=== PATIENT | male | born 1960 | race Caucasian/White ===

== ENCOUNTER 2016-03-16 07:25 | Emergency (ER) | payer MEDICARE ==
[2016-03-16 07:44] VITALS: BMI 42.0
[2016-03-16] MEDS ORDERED: KETOROLAC TROMETH 30 MG/ML VIAL IM ONE (07:56)
--- NOTE | 2016-03-16 08:06 | EDPRACDOC ---
- General Chief Complaint: Fall Stated Complaint: FALL / LEFT ARM PAIN Time Seen by Provider: 03/16/16 07:45 Information Source: Patient - History of Present Illness Onset: 02/17/16 HPI: PT FELL ON 02/16 ON THE ICE. HE LANDED ON HIS LEFT ARM AND HAS CONTINUED PAIN IN IT. PT SAID THAT HE TALKED TO HIS DR ABOUT IT, BUT NOTHING WAS DONE. THE PT SAID THAT IT CONTINUES TO HURT. Pain Severity: Reports: Moderate Injuries/Pain Location: Reports: upper extremity Reason for Fall: Reports: slipped Loss of Consciousness: no loss of consciousness Associated Symptoms (Fall): Reports: denies symptoms Allergies/Adverse Reactions: Allergies hornet venom Allergy (Verified 03/16/16 07:44) Unknown prednisone Allergy (Verified 03/16/16 07:44) Unknown/See Comments FEELS CRAZY venom-wasp [wasp venom] Allergy (Verified 03/16/16 07:44) Anaphylaxis* YELLOW JACKET Allergy (Uncoded 03/16/16 07:44) Unknown Home Medications: Ambulatory Orders Albuterol Sulfate [Ventolin] 2.5 mg NEB Q4H PRN 01/22/13 Saxagliptin HCl/Metformin HCl [Kombiglyze Xr 2.5-1,000 mg Tab] 1 tab PO BID(BARON ) 01/22/13 Gabapentin [Neurontin] 300 mg PO BID 04/18/14 HydrOXYzine HCl (Antihistamine [Atarax] 25 mg PO Q6H PRN 04/18/14 Nebulizer [Erapid Nebulizer] 1 each UNK 04/18/14 Pravastatin [Pravachol] 40 mg PO HS 04/18/14 Fenofibrate [Tricor] 145 mg PO DAILY 06/30/15 Humalog Mix 75/25 40 unit SQ BID 12/02/15 Lisinopril [Zestril] 2.5 mg PO DAILY 12/02/15 Oxycodone HCl [Roxicodone] 5 mg PO Q6H #20 tablet 03/16/16 ED Past Medical History - Patient Medical History Cardiac History: Reports: Hypertension, Hypercholesterolemia Respiratory History: Reports: Asthma, COPD, Chronic BronchitisComment Only: Pneumonia (UNSURE) GI/ History: Reports: Ulcer Musculoskeletal History: Reports: Arthritis Psychological History: Denies: Depression Systemic History: Reports: Diabetes. Denies: Cancer Surgical History: Reports: Hernia Surgery (DR KIMBROUGH) - Family Medical History Reports: Diabetes (mother), Cancer (father colon ca). Denies: Hypertension, Stroke, Cardiac Disorders - Social Medical History Smoking Status: Former smoker ETOH: None Substance Abuse: None Lives In: Home EDM Review of Systems - Review of Systems ROS Negative Except as Marked: Yes All systems reviewed and were negative except as marked Musculoskeletal: Hand, Shoulder, Wrist - Physical Exam Constitutional: Alert (Awake), No apparent distress Oriented to: Time, Person, Place Last recorded Vital Signs: Last Vital Signs Temp 97.8 F 03/16/16 07:36 Pulse 90 03/16/16 08:00 Resp 18 03/16/16 08:00 BP 122/71 03/16/16 08:00 Pulse Ox 95 03/16/16 08:00 Oxygen Pulse Oxygen Saturation 95 O2 Device Room Air Oxygen Flow Rate Fraction of Inspired Oxygen ( FIO2) - HEENT Head: Normal ( normocephalic) Eye Exam: Normal (PERRL, EOMI, Sclera white) Oropharynx: Normal (Pharynx:Moist without exudate,Gums-no swelling) ENT EAC: Normal TMJ: Normal Nose: No Symptoms Reported (septum midline) Neck: Normal (FROM, trachea at midline) - Respiratory/Cardiovascular Respiratory: Normal - CTA (BBS clear to auscultation without adventitious sounds ) Cardiovascular: Normal (RRR without murmur, gallop or rub) - GI Auscultation: Normal (NABS) Palpation: Normal (Soft,No rebound or guarding, non distended) Tenderness: Non tender Nunez's Sign: Negative - Musculoskeletal Back: Normal Extremities: Normal - Integumentary Skin: Other (PSORIASIS) Lymphatics: Normal - Neurologic Memory Impaired: Normal Motor Function: Normal (Normal tone, Pulses 2+ No cyanosis or edema, FROM) Cranial Nerve: Normal (CN II-X11 intact sensation, strength 5/5) Cerebellar: Normal Mood Description: Normal Thought: Coherent Perception: Normal ED Procedures - Splinting 1st splint Location: LEFT WRIST Hand-Made Type: orthoglass Splint: thumb spica Pre-Proc Neuro Vasc Exam: normal Post-Proc Neuro Vasc Exam: normal - Diagnostic Imaging Hand Image interpreted by: Radiologist Slightly displaced fracture of the distal left radius/radial styloid. Extension to the radiocarpal joint space noted. Forearm Image interpreted by: Radiologist IMPRESSION: Slightly displaced fracture of the distal radius/radial styloid with extension into the adjacent radiocarpal joint space . Wrist Image interpreted by: Radiologist Distal radius fracture. Shoulder Image interpreted by: Radiologist There is no acute or significant chronic bony abnormality of the left shoulder. There is mild narrowing of the subacromial subdeltoid space which may impact the rotator cuff. Decision Time to Discharge: 09:21 - Departure Yes I personally saw and evaluated the patient. Disposition: Home Condition: Fair Final Diagnosis: Accidental fall, Distal radius fracture, left Instructions: Wrist Fracture in Adults (ED), RICE Therapy (ED) Education/Counseling Given To: Patient Education/Counseling Given Regarding: Diagnosis, Treatment, Follow Up Referrals: Danielle Wilkinson NP [Primary Care Provider] - One Week Ino Zabala MD [Staff Physician] - One Week Prescriptions: New Oxycodone HCl [Roxicodone] 5 mg PO Q6H #20 tablet No Action Saxagliptin HCl/Metformin HCl [Kombiglyze Xr 2.5-1,000 mg Tab] 1 tab PO BID( BARON) Albuterol Sulfate [Ventolin] 2.5 mg NEB Q4H PRN PRN Reason: Shortness Of Breath HydrOXYzine HCl (Antihistamine [Atarax] 25 mg PO Q6H PRN PRN Reason: Itching Gabapentin [Neurontin] 300 mg PO BID Pravastatin [Pravachol] 40 mg PO HS Nebulizer [Erapid Nebulizer] 1 each MC UNK Fenofibrate [Tricor] 145 mg PO DAILY Humalog Mix 75/25 40 unit SQ BID Lisinopril [Zestril] 2.5 mg PO DAILY
--- NOTE | 2016-03-16 08:57 | DIRPT ---
CLINICAL DATA: Fall. Pain. Initial evaluation . EXAM: LEFT FOREARM - 2 VIEW COMPARISON: 07/19/2013. FINDINGS: Slightly displaced fracture of the distal radius/ radial styloid with extension into the radiocarpal joint space is noted. Ulna is intact. IMPRESSION: Slightly displaced fracture of the distal radius/radial styloid with extension into the adjacent radiocarpal joint space . Electronically Signed By: Jani sAh On: 03/16/2016 08:54
--- NOTE | 2016-03-16 08:57 | DIRPT ---
CLINICAL DATA: Status post on February 17, 2016 on IC surface landing on the left upper extremity; numbness in the shoulder and fingers. EXAM: LEFT SHOULDER - 2+ VIEW COMPARISON: None in PACs FINDINGS: The bones of the left shoulder are adequately mineralized. The glenohumeral and AC joint spaces are preserved. There is mild narrowing of the subacromial subdeltoid space. There is no acute fracture nor dislocation. The observed portions of the left clavicle and upper left ribs are normal. IMPRESSION: There is no acute or significant chronic bony abnormality of the left shoulder. There is mild narrowing of the subacromial subdeltoid space which may impact the rotator cuff. Electronically Signed By: Chris Dominguez M.D. On: 03/16/2016 08:55
--- NOTE | 2016-03-16 08:58 | DIRPT ---
CLINICAL DATA: Fall. Pain. EXAM: LEFT HAND - COMPLETE 3+ VIEW COMPARISON: 07/19/2013. FINDINGS: Slightly displaced fracture of the distal left radius/ radial styloid noted. Extension into the radiocarpal joint space noted. No other focal abnormality identified. IMPRESSION: Slightly displaced fracture of the distal left radius/radial styloid. Extension to the radiocarpal joint space noted. Electronically Signed By: Jani Ash On: 03/16/2016 08:56
--- NOTE | 2016-03-16 09:01 | DIRPT ---
CLINICAL DATA: The patient fell nearly 1 month ago with continued pain. EXAM: LEFT WRIST - COMPLETE 3+ VIEW COMPARISON: None. FINDINGS: There is a lucency through the distal radius extending into the radiocarpal joint consistent with a fracture. Given history, this is likely subacute. There is mild depression at the radiocarpal joint. IMPRESSION: Distal radius fracture. Electronically Signed By: Chris Cano III, M.D On: 03/16/2016 08:58
[2016-03-16 09:27] VITALS: BP 125/78; PULSE 90; TEMP 98.2
== END 2016-03-16 09:33 | disposition home or self-care (01) ==
LOC: ED 07:25
DX: S52.502A Unspecified fracture of the lower end of left radius, initial encounter for closed fracture (principal); W00.0XXA Fall on same level due to ice and snow, initial encounter; Y93.9 Activity, unspecified
CPT/HCPCS: 29125; 73030; 73090; 73110; 73130; 99283; J1885